=== PATIENT | female | born 1995 | race Caucasian/White ===

== ENCOUNTER 2022-04-22 23:05 | Emergency (ER) | payer SELFPAY ==
[2022-04-22 23:13] VITALS: BP 136/84; PULSE 100; RESP 18; TEMP 36.8; O2SAT 99; BMI 41.5
[2022-04-23] VITALS: O2SAT 99
[2022-04-23 01:00] VITALS: BP 125/74; PULSE 89; RESP 18; TEMP 36.8; O2SAT 99
--- NOTE | 2022-04-23 04:01 | ED.BACK ---
HPI - Back Pain/Injury General Date Seen: 04/23/22 Chief Complaint: Back Injury/Pain Stated Complaint: Back and Neck Pain Time Seen by Provider: 04/22/22 23:16 Source: patient and other (Significant other) Mode of arrival: ambulatory Limitations: no limitations History of Present Illness HPI Narrative: Patient is a very nice 18-year-old female who works at [employer], presents here with a 2 day history of neck discomfort, that radiates to her true a trapezius/rhomboids bilaterally, she has no history of fall or injury, denies any numbness tingling or weakness, any fevers chills or sweats, there has been no coughing, associated with this she has a hard time turning to the left than the right. She says she is able to do all the motions is just sore. He has been taking Tylenol, Aleve, with really no improvement she is also trying heat she is not use chiropractic manipulation. No coughing no cold symptoms, and no history of trauma or falls. Treatments prior to arrival: heat therapy, NSAIDS and acetaminophen Work related injury: No Related Data Home Medications Medication Instructions Recorded Confirmed No Known Home Medications 04/22/22 04/22/22 Allergies Allergy/AdvReac Type Severity Reaction Status Date / Time No Known Drug Allergies Allergy Verified 04/22/22 23:15 Review of Systems Status of ROS: Reports: 10 or more systems reviewed and unremarkable except as noted in History and below [facility] Medical History No significant past medical history Surgical History No significant past surgical history Social History Smoking Status: Never smoker Do you use any of these nicotine containing products: None Second hand tobacco smoke exposure: No How often do you have a drink containing alcohol: never How often do you have six or more drinks on one occasion: Never AUDIT-C Alcohol total score: 0 Non-prescribed substance use: denies use Exam Narrative: Exam Narrative: She is seen in room 2, Patient is speaking normally, no problem with slurring words, oriented x3. Head eyes ears nose and throat exam show equal pupils, no scleral icterus, extraocular muscles are normal, no facial droop, speech is normal, trachea normal and midline. Thyroid normal midline palpable not enlarged. She is able to move her neck through full range of motion she has flexion to 6 cm she has extension to 21 cm, but it is sore to do this right-sided flexion is 20 left-sided flexion 20 rotation of the right is about 65 to left is 75. She is palpably sore along her paraspinal muscles and into her rhomboids bilaterally, and trapezius she has good anatomic pathologist strength bilaterally, biceps triceps power is normal wrist dorsiflexion 1st finger thumb opposition finger abduction and anatomic pathologist strengths are normal bilaterally sensation is normal over all signature dermatomal areas. Chest shows symmetrical rise bilaterally, normal auscultation with no wheezes, no increased work of breathing, no overt bruising or lesions seen, no tenderness is noted on auscultation. Heart sounds normal with no S3-S4 no murmurs clicks or gallops. Abdomen shows no obvious masses or hepatosplenomegaly, no organomegaly, bowel sounds are normal in all quadrants. No tenderness is noted also in all quadrants. Upper and lower extremities show normal power, normal range of motion, pulses are normal, sensations normal, fine motor movements are normal, pelvis is stable to rocking. Cervical spine shows normal range of motion, and palpably not tender. Thoracic spine shows normal range of motion, and palpably not tender, lumbar spine shows no tenderness to palpation percussion and is otherwise normal range of motion. Skin shows no rashes, petechiae or eccymosis. Const: Vital Signs, click to edit/add: Vital Signs - 24 hr 04/22/22 23:13 04/23/22 01:00 04/23/22 00:00 Temperature 98.2 F 98.2 F Pulse Rate [Right Pulse Oximeter] 100 89 Respiratory Rate 18 18 Blood Pressure [Ri ght Upper Arm] 136/84 125/74 Pulse Oximetry 99 99 99 Oxygen Delivery Me thod Room Air Room Air Documenting provider has reviewed patient's vital signs: yes Course Vital Signs Vital signs: Initial Vital Signs Temperature 98.2 F 04/22/22 23:13 Temperature Source Temporal Artery Scan 04/22/22 23:13 Pulse Rate 100 04/22/22 23:13 Respiratory Rate 18 04/22/22 23:13 Blood Pressure 136/84 04/22/22 23:13 Blood Pressure Mean 101 04/22/22 23:13 Blood Pressure Position Sitting 04/22/22 23:13 Pulse Oximetry 99 04/22/22 23:13 Oxygen Delivery Method 04/22/22 23:13 Vital Signs Temperature 98.2 F 04/22/22 23:13 Pulse Rate 100 04/22/22 23:13 Respiratory Rate 18 04/22/22 23:13 Blood Pressure 136/84 04/22/22 23:13 Pulse Oximetry 99 04/22/22 23:13 Oxygen Delivery Method 04/22/22 23:13 Temperature 98.2 F 04/23/22 01:00 Pulse Rate 89 04/23/22 01:00 Respiratory Rate 18 04/23/22 01:00 Blood Pressure 125/74 04/23/22 01:00 Pulse Oximetry 99 04/23/22 01:00 Oxygen Delivery Method 04/23/22 01:00 MDM - Back Pain/Injury MDM Narrative Medical decision making narrative: This lady has neck pain, I believe this is musculoskeletal in nature, I am not getting a feeling that this is related to meningitis, cervical spine fracture, epidural abscess, or other significant issue. I think it would be reasonable to try Tylenol and ibuprofen, and structure dosing, some muscle relaxants and use of ice is today heat, still having pain on Sunday then chiropractic manipulation can be of help for this. Return as needed. Medical Records Attestation: I reviewed the patient's medical records. Discharge Plan Discharge Clinical Impression: Acute strain of neck muscle Patient Disposition: Home w/ Parent or Adult Condition: Stable Instructions: Cervical Strain (DC) Additional Instructions: Home rest discharge instructions per discussion above, written note written for work x2 days. Prescriptions: No Action No Known Home Medications Follow Up/Referrals: Provider,Not a Local [Primary Care Provider] - Stand Alone Forms: [employer] Info Instructions
== END 2022-04-23 01:34 | disposition home or self-care (01) ==
PROVIDERS: Emergency Provider Family Medicine
DX: S16.1XXA Strain of muscle, fascia and tendon at neck level, initial encounter (principal)
CPT/HCPCS: 94761; 99283; 99284

== ENCOUNTER 2023-11-05 23:18 | Emergency (ER) | payer OTHER, SELFPAY ==
[2023-11-05 23:23] VITALS: BP 144/93; PULSE 105; RESP 18; TEMP 37.4; O2SAT 99; BMI 43.5
--- NOTE | 2023-11-05 23:31 | ED.GENADULT ---
HPI - General Adult General Chief complaint: Allergic Reaction Stated complaint: allergic reaction Time Seen by Provider: 11/05/23 23:27 Source: patient Mode of arrival: ambulatory Limitations: no limitations History of Present Illness HPI narrative: 28-year-old female presenting today with swelling of her upper lip. Swelling started approximately 2 hours ago. Patient states that she had a similar episode a couple weeks ago with both hips became swollen. Lasted a few hours and then went away. She denies any difficulty breathing, speaking or swallowing her own spit. No pain with swallowing. She denies her tongue feeling swollen, denies back of her throat feeling swollen. Patient denies any new foods, recent travel or recent illness. She denies rash. She denies any family history of allergic reactions that she is aware of. She denies any new soaps lotions or creams. She does take ibuprofen periodically for shoulder pain or headaches. She is not on any other medication. Has no known drug allergies. She does smoke marijuana regularly that is home grown, denies other drug use. Patient took 75 mg of Benadryl prior to presenting to the emergency department. Related Data Previous Rx's ?Medication ?Instructions ?Recorded prednisone 20 mg tablet 20 mg PO BID 3 days #6 tabs 11/05/23 Allergies Allergy/AdvReac Type Severity Reaction Status Date / Time No Known Drug Allergies Allergy Verified 11/05/23 23:29 Review of Systems Status of ROS: Reports: 10 or more systems reviewed and unremarkable except as noted in History and below [facility] Medical History No significant past medical history Surgical History No significant past surgical history Social History Smoking Status: Never smoker Do you use any of these nicotine containing products: None Second hand tobacco smoke exposure: No How often do you have a drink containing alcohol: never How often do you have six or more drinks on one occasion: Never AUDIT-C Alcohol total score: 0 Non-prescribed substance use: marijuana (any form) service: No Exam Narrative: Exam Narrative: Obese, well-developed patient in no acute distress. Alert and oriented. Answers questions appropriately. Mood and affect are appropriate. Thoughts are goal oriented and rational. No tangential or magical thinking noted. Patient speaks in full sentences without needing to catch her breath. Speech is not slurred or pressured, voice does not sound muffled or congested. HEENT: Normocephalic atraumatic. Pupils are equally round reactive to light. Extraocular muscles are intact. Conjunctivae are moist without any icterus noted. Moist mucous membranes. Posterior pharynx is normal. Neck is soft without any lymphadenopathy or thyromegaly. No masses are appreciated. Patient has a swollen upper lip. There is no swelling otherwise into the face, tongue to, soft palate, uvula are not swollen. Cardiovascular: Heart is regular rate and rhythm S1 and S2 are present without any murmurs. Lungs: Clear to auscultation bilaterally no wheezes rhonchi or rales are appreciated. Patient takes deep breaths without any discomfort. Abdomen: Soft and nontender nondistended with normal bowel sounds. Skin: Well perfused without any obvious rashes. No urticaria or wheals Const: Vital Signs, click to edit/add: Vital Signs - 24 hr 11/05/23 23:23 Temperature 99.3 F Pulse Rate [Pulse Oximeter] 105 H Respiratory Rate 18 Blood Pressure [[facility] Upper Arm] 144/93 H Pulse Oximetry 99 Oxygen Delivery Me thod Room Air Course Course ED Course: The patient was given 60 mg of oral prednisone. Shortly after treatment, lip swelling already started to go down. Vital Signs Vital signs: Initial Vital Signs Temperature 99.3 F 11/05/23 23:23 Temperature Source Temporal Artery Scan 11/05/23 23:23 Pulse Rate 105 H 11/05/23 23:23 Pulse Rhythm Regular 11/05/23 23:23 Pulse Strength 3+ Normal 11/05/23 23:23 Respiratory Rate 18 11/05/23 23:23 Blood Pressure 144/93 H 11/05/23 23:23 Blood Pressure Mean 110 H 11/05/23 23:23 Blood Pressure Position Sitting 11/05/23 23:23 Pulse Oximetry 99 11/05/23 23:23 Oxygen Delivery Method Room Air 11/05/23 23:23 Vital Signs Temperature 99.3 F 11/05/23 23:23 Pulse Rate 105 H 11/05/23 23:23 Respiratory Rate 18 11/05/23 23:23 Blood Pressure 144/93 H 11/05/23 23:23 Pulse Oximetry 99 11/05/23 23:23 Oxygen Delivery Method Room Air 11/05/23 23:23 Temperature 99.3 F 11/05/23 23:23 Pulse Rate 105 H 11/05/23 23:23 Respiratory Rate 18 11/05/23 23:23 Blood Pressure 144/93 H 11/05/23 23:23 Pulse Oximetry 99 11/05/23 23:23 Oxygen Delivery Method Room Air 11/05/23 23:23 Medical Decision Making MDM Narrative Medical decision making narrative: 28-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 For put the patient on a prednisone taper and request that she follow up with primary care for further testing. Discharge Plan Discharge Clinical Impression: Idiopathic angioedema Patient Disposition: Home, Self-Care Condition: Stable Additional Instructions: Take all steroid as prescribed. Recommend you follow-up with your primary care provider to discuss further testing to find out if there is a reason for your recurrent angioedema. Also recommend a daily Claritin or Estrella tablet until you follow-up. Prescriptions: New prednisone 20 mg tablet 20 mg PO BID 3 Days Qty: 6 0RF Follow Up/Referrals: Provider,Not a Local [Primary Care Provider] - Stand Alone Forms: [employer] Info Instructions
--- OUTSIDE RECORDS SUMMARY | 2023-11-06 00:02 | XMS_ITS | Clinical Summary ---
Author Organization [facility] Address [address] [place] [address]. [place] [address] Care Team Providers Care Lumber Mover Name Role Phone Unavailable Primary Care Provider Unavailabl e Allergies No known active allergies Medications Medication Sig Dispensed Refills Start Date End Date Status sertraline (ZOLOFT) 100 MG tablet Take 1 tablet by mouth every morning 11/27/2019 Active Active Problems No known active problems Immunizations Name Administration Dates Next Due COVID-19 MONOVALENT 12+ (Pfizer) 07/29/2020,06/11 Social History Tobacco Use Types Packs/Day Years Used Date Smoking Tobacco: Every Day Smokeless Tobacco: Never Adolescent Education Answer Date Record ed Getting School Help Needed Not on file 12/02 Sex and Gender Information Value Date Recorded Sex Assigned at Not on file Gender Identity Not on file Sexual Orientation Not on file Last Filed Vital Signs Vital Sign Reading Time Taken Comments Blood Pressure 139/85 10/19/2021 12:56 PM CDT Pulse 97 10/19/2021 12:56 PM CDT Temperature 37.2 ??C (98.9 ??F) 10/19/2021 12:56 PM C DT Respiratory Rate 16 10/19/2021 12:56 PM CDT Oxygen Saturation 98% 10/19/2021 12:56 PM CDT Inhaled Oxygen Concentration - - Weight - - Height - - Body Mass Index - - Plan of Treatment Health Maintenance Due Date Last Done Comments ADVANCE CARE PLANNING 1993 ANNUAL REVIEW OF HM ORDERS 1993 YEARLY PREVENTIVE VISIT 1993 Pneumococcal Vaccine: Pediatrics (0 to 5 Years) and At-Risk Patients (6 to 64 Years) (1 of 2 - PCV) 06/16/1999 HIV SCREENING 2008 HEPATITIS C SCREENING 06/16/2011 HEPATITIS B IMMUNIZATION (1 of 3 - 19+ 3-dose series) 2012 PAP 2014 DTAP/TDAP/TD IMMUNIZATION (1 - Tdap) 2018 COVID-19 Vaccine (3 - 2022-2 4 season) 2022 07/29/2020, 07/08/2020 PHQ-2 (once per calendar year) 2023 INFLUENZA VACCINE (#1) 2023 11/13/2019 HPV IMMUNIZATION Aged Out No longer e ligible based on patient's age to complete this topic IPV IMMUNIZATION Aged Out No longer e ligible based on patient's age to complete this topic MENINGITIS IMMUNIZATION Aged Out No l onger eligible based on patient's age to complete this topic RSV MONOCLONAL ANTIBODY Aged Out No l onger eligible based on patient's age to complete this topic
--- OUTSIDE RECORDS SUMMARY | 2023-11-06 00:03 | XMS_ITS | Referral Summary ---
Author Organization [facility] Address [facility] [place] [address] Care Team Providers Care [employer] Sergeant Name Role Phone Unavailable Primary Care Provider [...] Mass Index - - Plan of Treatment Not on file
== END 2023-11-06 00:06 | disposition home or self-care (01) ==
LOC: ED 11-06
PROVIDERS: Emergency Provider Family Medicine
DX: T78.3XXA Angioneurotic edema, initial encounter (principal); T78.40XA Allergy, unspecified, initial encounter
CPT/HCPCS: 99283; 99284

== ENCOUNTER 2024-09-30 13:39 | Outpatient (CLI) | payer OTHER, SELFPAY ==
[2024-09-30 16:03] LABS: Chlamydia DNA Amplified* NOT DETECTED (No Detected); GC DNA Amplified* NOT DETECTED (No Detected)
[2024-10-03 00:49] LABS: HPV Source Cervical
[2024-10-07 16:42] LABS: Pap Test Digital Imaging Done
== END 2024-09-30 13:40 | disposition home or self-care (01) ==
PROVIDERS: Visit Provider Physician Assistant
DX: Z11.3 Encounter for screening for infections with a predominantly sexual mode of transmission (principal); Z12.4 Encounter for screening for malignant neoplasm of cervix; Z11.51 Encounter for screening for human papillomavirus (HPV)
CPT/HCPCS: 87491; 87591; 87624; 87625; 88141; 88142; 88175

== ENCOUNTER 2024-10-20 08:27 | Outpatient (CLI) | payer OTHER, SELFPAY | END 2024-10-20 08:28 | disposition home or self-care (01) | LOC: NFLDREF 10-23 14:47 | PROVIDERS: Visit Provider Physician Assistant | DX: Z13.6 Encounter for screening for cardiovascular disorders (principal); Z13.1 Encounter for screening for diabetes mellitus; Z13.29 Encounter for screening for other suspected endocrine disorder | CPT/HCPCS: 80061; 82947; 84443 ==